=== PATIENT | female | born 1945 | race Caucasian/White ===

== ENCOUNTER 2016-06-04 16:11 | Inpatient (IN) ==
[2016-06-04] MEDS ORDERED: LACTATED RINGERS 500 ML IV STA (16:17)
[2016-06-04] MEDS ORDERED: ONDANSETRON 4 MG/2 ML VIAL IV STA (16:20)
[2016-06-04] MEDS ORDERED: METOCLOPRAMIDE 10 MG/2 ML VIAL IV STA (16:20)
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
[2016-06-04] MEDS ORDERED: ONDANSETRON 4 MG/2 ML VIAL ONE (16:46)
[2016-06-04] MEDS ORDERED: METOCLOPRAMIDE 10 MG/2 ML VIAL ONE (16:46)
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
[2016-06-04 16:52] LABS: Basophils # 0.1 10*3/uL (0.0-0.2); Basophils % 0.4 % (0.0-0.8); Eosinophils # 0.3 10*3/uL (0.0-0.87); Hematocrit 45.8 VOL% (35.7-47.0); Hemoglobin 14.6 GM/DL (12.0-16.0); Immature Granulocytes % 0.6 %; Immature Granulocytes Absolute 0.09 #; Lymphocytes # 5.9 10*3/uL (1.4-4.0); Lymphocytes % 38.8 % (21.3-54.2); Mean Corpuscular HGB Conc 31.9 GM/DL (32-36); Mean Corpuscular Hemoglobin 30 PG (27-34); Mean Corpuscular Volume 93.3 FL (87-102); Mean Platelet Volume 10.9 FL (9.6-12.0); Monocytes % 6.6 % (1.7-12.7); Neutrophils # 7.8 10*3/uL (1.4-7.4); Neutrophils % 51.6 % (38.7-73.9); Platelet Count 235 T/CUMM (130-400); Red Blood Count 4.91 MC/CUMM (3.8-5.5); White Blood Count 15.2 T/CUMM (4-12)
[2016-06-04] MEDS ORDERED: ACETAMINOPHEN 325 MG TABLET PO PRN (16:52)
[2016-06-04 16:53] LABS: Apearance,Urine Slightly Hazy (Clear); Bacteria,Urine Occasional /HPF (Few); Bilirubin,Urine Negative (Negative); Blood, Urine Large mg/dL (Negative); Glucose,Urine (UA) Negative (Negative); Ketones,Urine Negative (Negative); Mucus,Urine Occasional /LPF (Occasional); Nitrite,Urine Negative (Negative); Protein,Urine 100 MG/DL; RBC,Urine 33 /HPF (0-4); Squamous Epithelial Cell,Urine Occasional /HPF (0-10); Urine Color Yellow (Yellow); Urine Specific Gravity 1.023 (1.001-1.035); Urine Urobilinogen < 2.0 EU/DL (0.2-1.0); WBC,Urine 12 /HPF (0-6)
[2016-06-04 16:57] LABS: Barbiturates Screen,Urine Negative (Negative); Benzodiazepines Screen,Urine Negative (Negative); Cannabinoid Screen,Urine Negative (Negative); Opiate Screen,Urine Negative (Negative); Phencyclidine Screen,Urine Negative (Negative)
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
[2016-06-04] MEDS ORDERED: HYDROmorphone 2 MG/1 ML VIAL IV STA (17:07)
[2016-06-04] MEDS ORDERED: HYDROmorphone 2 MG/1 ML VIAL ONE (17:10)
--- NOTE | 2016-06-04 17:12 | Event Note ---
We do not have a report back on her CT scan of her abdomen think I can see a liver laceration right lobe. There is indistinct plane between the right lobe of the liver in the right kidney. We will get serial hematocrits for abdominal bleeding.
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
[2016-06-04 17:27] LABS: Troponin I Only < 0.015 NG/ML (0.00-0.045)
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
[2016-06-04 17:39] LABS: Alanine Aminotransferase 64 U/L (13-56); Albumin 3.7 G/DL (3.4-5.0); Alkaline Phosphatase 117 U/L (45-117); Amylase 37 U/L (25-115); Aspartate Amino Transferase 121 U/L (0-37); Blood Urea Nitrogen 14 MG/DL (7-18); Calcium 8.9 MG/DL (8.5-10.1); Glucose 125 MG/DL (74-106); Osmolality,Calculated 289.7 MOS/KG (273-304); Potassium 3.5 MMOL/L (3.5-5.1); Sodium 145 MMOL/L (136-145)
[2016-06-04] MEDS: ONDANSETRON 4 MG/2 ML VIAL IV PRN (18:14)
[2016-06-04] MEDS: DEXTROSE 5% LACTATED RINGERS 1,000 ML IV SCH (20:29)
[2016-06-04 20:55] LABS: PT Patient Result 10.6 SECS; Partial Thromboplastin Time 22.6 SECS (0-40)
[2016-06-05] MEDS: DEXTROSE 5% LACTATED RINGERS 1,000 ML IV SCH ×3 (05:02→22:11)
[2016-06-05] MEDS: ONDANSETRON 4 MG/2 ML VIAL IV PRN (08:35)
[2016-06-05] MEDS: PANTOPRAZOLE 40 MG TABLET PO SCH (08:36)
--- NOTE | 2016-06-05 08:42 | EKG Report ---
Stationary ECG Study 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
[2016-06-05] MEDS ORDERED: ALBUTEROL/IPRATROPIUM 3 ML NEB RESP TX PRN (10:29)
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
[2016-06-05 10:59] LABS: Basophils % 0.2 % (0.0-0.8); Eosinophils % 0.3 % (0.00-10.9); Hematocrit 39.6 VOL% (35.7-47.0); Hemoglobin 12.7 GM/DL (12.0-16.0); Immature Granulocytes % 0.4 %; Immature Granulocytes Absolute 0.04 #; Lymphocytes # 1.9 10*3/uL (1.4-4.0); Lymphocytes % 17.1 % (21.3-54.2); Mean Corpuscular HGB Conc 32.1 GM/DL (32-36); Mean Corpuscular Hemoglobin 29 PG (27-34); Mean Platelet Volume 9.7 FL (9.6-12.0); Monocytes # 0.8 10*3/uL (0.11-0.8); Monocytes % 7.4 % (1.7-12.7); Neutrophils # 8.1 10*3/uL (1.4-7.4); Neutrophils % 74.6 % (38.7-73.9); Platelet Count 224 T/CUMM (130-400); Red Blood Count 4.35 MC/CUMM (3.8-5.5); Red Cell Distribution Width 13.2 % (9.3-17.3); White Blood Count 10.8 T/CUMM (4-12)
[2016-06-05] MEDS ORDERED: AMINOPHYLLINE 250 MG in SODIUM CHLORIDE 0.9% 100 ML IV ONE (11:00)
[2016-06-05] MEDS: methylPREDNISolone SOD SUC 40 MG/1 ML VIAL IV SCH ×2 (11:26→22:19)
[2016-06-05] MEDS: cefTRIAXone 1,000 MG in SODIUM CHLORIDE 0.9% 100 ML IV SCH (11:27)
[2016-06-05 11:28] LABS: Albumin 3.4 G/DL (3.4-5.0); Bilirubin,Total 0.9 MG/DL (0.2-1.0); Calcium 8.9 MG/DL (8.5-10.1); Osmolality,Calculated 285.7 MOS/KG (273-304); Potassium 3.8 MMOL/L (3.5-5.1); Total Protein 6.4 G/DL (6.4-8.3)
[2016-06-05] MEDS: MONTELUKAST 10 MG TABLET PO SCH ×2 (11:28→11:36)
[2016-06-05] MEDS: NICOTINE 14 MG/24 HR PATCH TRANSDERM SCH (11:36)
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
[2016-06-05] MEDS ORDERED: MORPHINE 2 MG/1 ML SYRINGE IV PRN (12:07)
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
[2016-06-05] MEDS ORDERED: ALBUTEROL/IPRATROPIUM 3 ML NEB RESP TX ONE (12:57)
[2016-06-05] MEDS: ALBUTEROL/IPRATROPIUM 3 ML NEB RESP TX SCH ×2 (13:24→20:10)
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
--- NOTE | 2016-06-05 17:14 | Anesthesia ---
Anesthesia Post OP - Post Ansesthetic Evaluation Patient seen in post op: Yes Resp: within normal limits CV: within normal limits Mental: within normal limits Temp: within normal limits Liyx-Mt-Jujqqbtog: within normal limits Nausea and Vomiting: within normal limits Pain: within normal limits
[2016-06-05] MEDS ORDERED: PROPOFOL 200 MG/20 ML VIAL IV ONE (17:18)
[2016-06-05] MEDS ORDERED: fentaNYL 100 MCG/2 ML VIAL ONE (17:18)
[2016-06-05] MEDS ORDERED: MIDAZOLAM 2 MG/2 ML VIAL ONE (17:18)
[2016-06-05] MEDS ORDERED: ROCURONIUM 100 MG/10 ML VIAL IV ONE (17:19)
[2016-06-05] MEDS ORDERED: SEVOFLURANE 1 UNIT/15 MINUTE INH ONE (17:19)
[2016-06-05] MEDS ORDERED: SUCCINYLCHOLINE 200 MG/10 ML VIAL ONE (17:19)
[2016-06-05] MEDS ORDERED: ONDANSETRON 4 MG/2 ML VIAL ONE (17:19)
[2016-06-05] MEDS ORDERED: METOPROLOL TARTRATE 5 MG/5 ML VIAL IV ONE (17:19)
[2016-06-05] MEDS: AMINOPHYLLINE 500 MG in SODIUM CHLORIDE 0.9% 480 ML IV SCH (18:18)
[2016-06-06] MEDS: ALBUTEROL/IPRATROPIUM 3 ML NEB RESP TX SCH ×4 (01:01→20:26)
[2016-06-06] MEDS: DEXTROSE 5% LACTATED RINGERS 1,000 ML IV SCH ×2 (05:42→15:53)
[2016-06-06 05:55] LABS: Hematocrit 34.9 VOL% (35.7-47.0); Hemoglobin 11.2 GM/DL (12.0-16.0); Immature Granulocytes % 0.4 %; Immature Granulocytes Absolute 0.04 #; Lymphocytes # 1.1 10*3/uL (1.4-4.0); Lymphocytes % 11.9 % (21.3-54.2); Mean Corpuscular HGB Conc 32.1 GM/DL (32-36); Mean Corpuscular Hemoglobin 30 PG (27-34); Mean Corpuscular Volume 92.3 FL (87-102); Mean Platelet Volume 9.9 FL (9.6-12.0); Monocytes # 0.5 10*3/uL (0.11-0.8); Monocytes % 5.1 % (1.7-12.7); Neutrophils # 7.6 10*3/uL (1.4-7.4); Neutrophils % 82.6 % (38.7-73.9); Platelet Count 191 T/CUMM (130-400); Red Blood Count 3.78 MC/CUMM (3.8-5.5); Red Cell Distribution Width 13.2 % (9.3-17.3); White Blood Count 9.2 T/CUMM (4-12)
[2016-06-06 06:33] LABS: Albumin 2.9 G/DL (3.4-5.0); Bilirubin,Total 0.5 MG/DL (0.2-1.0); Calcium 8.5 MG/DL (8.5-10.1); Osmolality,Calculated 291.6 MOS/KG (273-304); Potassium 3.6 MMOL/L (3.5-5.1); Total Protein 5.8 G/DL (6.4-8.3)
--- NOTE | 2016-06-06 07:31 | Orthopedic Progress Note ---
Assessment and Plan (1) Colles' fracture of left radius Status: Acute Assessment and plan: Discussed fracture in detail with the patient and her family. Due to the significant displacement I recommended closed reduction percutaneous pinning. Perioperative and Postoperative care including 6 weeks of postoperative immobilization was discussed. They voiced understanding and desired to proceed. Risks, alternatives, and benefits to undergoing this procedure were discussed in great detail, the patient voiced understanding desire proceed. Risks discussed included, but were not limited to, bleeding, infection, damage to arteries and nerves, nonunion, malunion, need for revision surgery, as well as medical complications. We'll plan to perform procedure later this afternoon Current Visit: Yes Qualifiers: Encounter type: initial encounter Fracture type: closed Qualified Code(s) : S52.532A - Colles' fracture of left radius, initial encounter for closed fracture Exam - Constitutional Vitals: Period Temp Pulse Resp BP Sys/Vaughn Pulse Ox Last 24 Hr 96.9 F-98.3 F 75-100 16-91 119-175/51-97 20-100 Results - Labs CBC & BMP: 06/06/16 05:41 06/06/16 05:41 Quality Measures - VTE Contraindication to Pharmacological VTE Prophylaxis: High Risk of Bleeding Specialty Discharge - Follow Up or Referrals Follow up with: Frandy Taveras MD [Physician] - 2 Weeks - Speciality Discharge Instructions Orthopedic Instructions: keep splint clean and dry. elevate L hand/wrist
[2016-06-06] MEDS: MONTELUKAST 10 MG TABLET PO SCH (08:01)
[2016-06-06] MEDS: PANTOPRAZOLE 40 MG TABLET PO SCH (08:02)
[2016-06-06] MEDS: NICOTINE 14 MG/24 HR PATCH TRANSDERM SCH ×2 (08:05→15:51)
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
[2016-06-06] MEDS: methylPREDNISolone SOD SUC 40 MG/1 ML VIAL IV SCH ×2 (10:51→22:18)
[2016-06-06] MEDS: cefTRIAXone 1,000 MG in SODIUM CHLORIDE 0.9% 100 ML IV SCH (10:51)
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
[2016-06-06] MEDS: AMINOPHYLLINE 500 MG in SODIUM CHLORIDE 0.9% 480 ML IV SCH (15:50)
[2016-06-06] MEDS: ALUMINUM/MAGNES/SIMETH MAX STR 30 ML UDCUP PO PRN ×2 (15:51→21:31)
[2016-06-06] MEDS ORDERED: PROPOFOL 200 MG/20 ML VIAL IV ONE (16:16)
[2016-06-06] MEDS ORDERED: ONDANSETRON 4 MG/2 ML VIAL ONE (16:16)
[2016-06-06] MEDS ORDERED: SUCCINYLCHOLINE 200 MG/10 ML VIAL ONE (16:16)
[2016-06-06] MEDS ORDERED: ROCURONIUM 100 MG/10 ML VIAL IV ONE (16:16)
[2016-06-06] MEDS ORDERED: METOPROLOL TARTRATE 5 MG/5 ML VIAL IV ONE (16:16)
[2016-06-06] MEDS ORDERED: LIDOCAINE 2% 5 ML VIAL ONE (16:16)
[2016-06-06] MEDS: ONDANSETRON 4 MG/2 ML VIAL IV PRN (23:06)
[2016-06-07] MEDS: ALBUTEROL/IPRATROPIUM 3 ML NEB RESP TX SCH ×3 (01:16→13:31)
[2016-06-07] MEDS: DEXTROSE 5% LACTATED RINGERS 1,000 ML IV SCH ×4 (01:17→13:52)
[2016-06-07 06:26] LABS: Basophils % 0.1 % (0.0-0.8); Hematocrit 37.9 VOL% (35.7-47.0); Hemoglobin 12.1 GM/DL (12.0-16.0); Immature Granulocytes % 0.9 %; Immature Granulocytes Absolute 0.11 #; Lymphocytes # 0.8 10*3/uL (1.4-4.0); Lymphocytes % 6.6 % (21.3-54.2); Mean Corpuscular HGB Conc 31.9 GM/DL (32-36); Mean Corpuscular Hemoglobin 30 PG (27-34); Mean Corpuscular Volume 92.9 FL (87-102); Mean Platelet Volume 9.6 FL (9.6-12.0); Monocytes # 0.4 10*3/uL (0.11-0.8); Monocytes % 3.4 % (1.7-12.7); Neutrophils # 10.6 10*3/uL (1.4-7.4); Platelet Count 214 T/CUMM (130-400); Red Blood Count 4.08 MC/CUMM (3.8-5.5); Red Cell Distribution Width 13.2 % (9.3-17.3); White Blood Count 11.9 T/CUMM (4-12)
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
[2016-06-07] MEDS ORDERED: THEOPHYLLINE ER (24 HR) 200 MG CAPSULE PO SCH (08:00)
[2016-06-07] MEDS: NICOTINE 14 MG/24 HR PATCH TRANSDERM SCH (08:54)
[2016-06-07] MEDS: MONTELUKAST 10 MG TABLET PO SCH (08:55)
[2016-06-07] MEDS: PANTOPRAZOLE 40 MG TABLET PO SCH (08:55)
[2016-06-07] MEDS: methylPREDNISolone SOD SUC 40 MG/1 ML VIAL IV SCH (10:04)
[2016-06-07] MEDS: cefTRIAXone 1,000 MG in SODIUM CHLORIDE 0.9% 100 ML IV SCH (10:06)
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
[2016-06-07] MEDS: AMINOPHYLLINE 500 MG in SODIUM CHLORIDE 0.9% 480 ML IV SCH (13:44)
[2016-06-07 17:59] VITALS: BP 147/70
== END 2016-06-07 16:00 | disposition home or self-care (01) | DRG 958 ==
LOC: EDUNIT# → EDBD → N.ED 16:11 → N.EDINP 16:11 → N.5E 19:24
PROVIDERS: ADMIT Surgery; ATTEND Surgery

== ENCOUNTER 2016-07-15 17:36 | Observation (INO) ==
--- NOTE | 2016-07-15 18:12 | Emergency Department Note ---
Arrival - Arrival Chief Complaint: Chest Pain Stated Complaint: chest pain, blood clot in stomach ED Nursing Triage Note: c/o having chest pain since last evening around noon, states the pain has not gone away, states the pain is a dull pain but if takes in a deep breath it makes worse, denies having diaphresis, + chills, +nausea , pain radiates in between shoulder blades, ekg obtained at time of triage Mode of Arrival: Wheelchair Time Seen by Provider: 07/15/16 18:10 - History of Present Illness HPI Narrative: Patient complains of left sided, dull, constant chest pain since yesterday. The pain is worse with movement, cough or deep inspiration. She has had some nausea but no vomiting, shortness of breath or diaphoresis. She has not had similar problems in the past. She does have a questionable history of PR 2 years ago but no cath or stent was ever done. She denies fever or chills. She does have a history of high blood pressure and high cholesterol. She is still a smoker. There is a family history of CAD after age 60. Allergies/Adverse Reactions: Allergies Allergy/AdvReac Type Severity Reaction Status Date / Time No Known Allergies Allergy Verified 07/15/16 17:49 Home Medications: Home Medications Medication Instructions Recorded Confirmed Type Albuterol Sulfate [Proair HFA] 2 puff INH Q4H PRN 06/04/16 07/15/16 History Aspirin EC Tab 81 mg PO DAILY 06/04/16 07/15/16 History Metoprolol Tartrate 50 mg PO DAILY 06/04/16 07/15/16 History Sertraline [Zoloft] 50 mg PO DAILY 06/04/16 07/15/16 History HYDROcodone/ACETAMIN 7.5-325 1 tablet PO Q4H PRN #30 tablet 06/07/16 07/15/16 Rx [Blanco 7.5-325] Review of System - Review of System 12 point system: reviewed and no additional remarkable complaints except as stated - Review of System Constitutional: Absent: chills, diaphoresis, fever Respiratory: Present: cough, wheezing. Absent: respiratory distress Cardiovascular: Present: chest pain. Absent: palpitations, dyspnea on exertion Gastrointestinal: Present: nausea. Absent: abdominal pain, vomiting Medical,Surgical,& Family Hx - Medical History Cardio: History of: Hypertension, PR, PVD (distal aortic occlusion) Endocrine: History of: Dyslipidemia Respiratory: History of: COPD Hematology: History of: Clotting Problems - Surgical History Orthopedic Surgeries: Surgical HX of;: Orthopedic Surgery (left arm) - Family History Family History: Reports;: Family Heart Disease, Family Hypertension Denies;: Family Anesthesia Reaction, Family Diabetes, Family Psychiatric Problems, Family Stroke - Social History Smoking Status: Smoker, status unknown Frequency of Alcohol Use: None Type of Drug Use: None Exam Physical Examination: GENERAL: Alert. No acute distress. HEENT: Normocephalic and atraumatic. There is no nasal drainage. No pharyngeal erythema or exudate. NECK: Normal inspection. Supple. No lymphadenopathy or meningismus. LUNGS: No respiratory distress. Good air movement. Sparse wheezes throughout. HEART: Regular rate and rhythm. Chest: Positive tenderness to palpation over the left chest, primarily left parasternal. Reproduces pain. ABDOMEN: Soft, nontender and nondistended with normoactive bowel sounds. BACK: Normal inspection. SKIN: Color normal. Warm and dry. EXTREMITIES: Nontender. Normal range of motion. No pedal edema. NEUROLOGICAL/PSYCHIATRIC: Alert and oriented 3 with normal mood and affect. Cranial nerves normal. No motor or sensory deficit. Vital Signs: Vital Signs Temperature 98.0 F 07/15/16 18:33 Pulse Rate 80 07/15/16 18:33 Respiratory Rate 18 07/15/16 18:33 Blood Pressure 173/84 07/15/16 18:33 O2 Sat by Pulse Oximetry 100 07/15/16 18:30 Course - Reevaluation(s) Reevaluation #1: The patient has remained stable in the ER. She continues to have some mild chest pain. I suspect that her chest pain is chest wall in origin, however, she has several risk factors including hypertension, hypercholesterolemia, peripheral vascular disease, heavy smoking, and possible prior PR. So I think she needs observation, serial enzymes and possible cardiology consultation. I discussed patient with Dr. Crockett who will see her and admit. Time: 19:55 Results - Labs CBC & BMP: 07/15/16 18:35 07/15/16 18:35 Lab Results: I have reviewed the patients labs Labs: Laboratory Tests 07/15/16 07/15/16 18:35 18:35 INR 1.0 Total Bilirubin < 0.39 AST 8 ALT 17 CK-MB (CK-2) 1.4 Troponin I 0.021 Laboratory Tests 07/15/16 18:35 D-Dimer, Quantitative 0.6 - Impressions EKG shows a normal sinus rhythm at 75 with borderline left atrial enlargement. Chest x-ray shows COPD changes. No acute abnormality. Disposition Clinical Impression: Chest pain Case discussed with: patient, patient's family Disposition: Still a Patient Condition: Stable Time of Disposition: 19:49
[2016-07-15 18:44] LABS: Basophils # 0.1 10*3/uL (0.0-0.2); Basophils % 0.4 % (0.0-0.8); Eosinophils # 0.2 10*3/uL (0.0-0.87); Eosinophils % 1.3 % (0.00-10.9); Hematocrit 44.9 VOL% (35.7-47.0); Hemoglobin 14.3 GM/DL (12.0-16.0); Immature Granulocytes % 0.5 %; Immature Granulocytes Absolute 0.06 #; Lymphocytes # 5.1 10*3/uL (1.4-4.0); Lymphocytes % 38.9 % (21.3-54.2); Mean Corpuscular HGB Conc 31.8 GM/DL (32-36); Mean Corpuscular Hemoglobin 30 PG (27-34); Mean Corpuscular Volume 93.2 FL (87-102); Mean Platelet Volume 9.5 FL (9.6-12.0); Monocytes # 0.9 10*3/uL (0.11-0.8); Monocytes % 6.5 % (1.7-12.7); Neutrophils # 6.9 10*3/uL (1.4-7.4); Neutrophils % 52.4 % (38.7-73.9); Platelet Count 227 T/CUMM (130-400); Red Blood Count 4.82 MC/CUMM (3.8-5.5); Red Cell Distribution Width 13.2 % (9.3-17.3); White Blood Count 13.1 T/CUMM (4-12)
[2016-07-15 19:07] LABS: PT Patient Result 10.1 SECS; Partial Thromboplastin Time 25.7 SECS (0-40)
[2016-07-15 19:13] LABS: Alanine Aminotransferase 17 U/L (13-56); Albumin 3.6 G/DL (3.4-5.0); Alkaline Phosphatase 103 U/L (45-117); Aspartate Amino Transferase 8 U/L (0-37); Bilirubin,Total < 0.39 MG/DL (0.2-1.0); Blood Urea Nitrogen 14 MG/DL (7-18); Calcium 10.1 MG/DL (8.5-10.1); Glucose 97 MG/DL (74-106); Magnesium 2.4 MG/DL (1.8-2.4); Osmolality,Calculated 288.7 MOS/KG (273-304); Potassium 3.8 MMOL/L (3.5-5.1); Sodium 145 MMOL/L (136-145); Total Protein 6.4 G/DL (6.4-8.3); Troponin I Only 0.021 NG/ML (0.00-0.045)
--- NOTE | 2016-07-15 19:27 | XRay Report ---
History: Chest pain and cough Date: 07/15/2016 Study: Chest x-ray AP portable Comparison exam: Chest x-ray June 05, 2016 The cardiac silhouette is not enlarged. There is no mediastinal mass. The pulmonary vasculature is not engorged. Lungs are well-expanded to slightly hyperexpanded. There are some scattered emphysematous changes. There is no acute infiltrate. There is parenchymal pleural scarring in either lung apex. Osseous structures are similar. Impression: Lungs are slightly hyperexpanded as can be seen with COPD. No definite acute process compared to the previous study PROCEDURE INTERPRETED AT [facility] DEPARTMENT OF RADIOLOGY Final Report Signed by: Dr. Addie Greco
[2016-07-15] MEDS ORDERED: ASPIRIN CHEW 81 MG TABLET PO STA (19:57)
[2016-07-15] MEDS ORDERED: ASPIRIN CHEW 81 MG TABLET PO ONE (20:01)
[2016-07-15] MEDS ORDERED: ONDANSETRON 4 MG/2 ML VIAL ONE (20:01)
[2016-07-15] MEDS ORDERED: MORPHINE 2 MG/1 ML SYRINGE ONE (20:01)
[2016-07-15] MEDS: ONDANSETRON 4 MG/2 ML VIAL IV STA ×2 (20:04→20:43)
[2016-07-15] MEDS: MORPHINE 2 MG/1 ML SYRINGE IV STA ×2 (20:04→20:43)
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
[2016-07-15] MEDS ORDERED: ACETAMINOPHEN 325 MG TABLET PO PRN (22:05)
[2016-07-15] MEDS ORDERED: ROSUVASTATIN 20 MG TABLET PO SCH (22:05)
[2016-07-15] MEDS ORDERED: NITROGLYCERIN SL 0.4 MG TABLET SL PRN (22:05)
[2016-07-15] MEDS ORDERED: BISACODYL 5 MG TABLET PO PRN (22:05)
[2016-07-15] MEDS ORDERED: ONDANSETRON 4 MG/2 ML VIAL IV PRN (22:05)
[2016-07-15] MEDS: METOPROLOL TARTRATE 50 MG TABLET PO SCH (22:55)
[2016-07-15] MEDS: methylPREDNISolone SOD SUC 125 MG/2 ML VIAL IV SCH (22:55)
[2016-07-15] MEDS: AZITHROMYCIN 250 MG TABLET PO SCH (22:55)
[2016-07-15] MEDS: FLUTICASONE/SALMETEROL 100-50 DISKUS 14 DOSE INH SCH (22:55)
[2016-07-15] MEDS ORDERED: ENOXAPARIN 40 MG/0.4 ML SYRINGE SUBCUT SCH (23:00)
[2016-07-16] MEDS: ALBUTEROL/IPRATROPIUM 3 ML NEB RESP TX SCH ×3 (00:07→13:36)
[2016-07-16] MEDS: methylPREDNISolone SOD SUC 125 MG/2 ML VIAL IV SCH (06:02)
--- NOTE | 2016-07-16 07:28 | EKG Report ---
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
--- NOTE | 2016-07-16 07:29 | EKG Report ---
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
--- NOTE | 2016-07-16 08:01 | EKG Report ---
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
[2016-07-16] MEDS ORDERED: SERTRALINE 50 MG TABLET PO SCH (09:00)
[2016-07-16] MEDS ORDERED: ASPIRIN EC 81 MG TABLET PO SCH (09:00)
[2016-07-16] MEDS: METOPROLOL TARTRATE 50 MG TABLET PO SCH (09:21)
[2016-07-16] MEDS: FLUTICASONE/SALMETEROL 100-50 DISKUS 14 DOSE INH SCH (09:21)
[2016-07-16] MEDS: AZITHROMYCIN 250 MG TABLET PO SCH (09:21)
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
[2016-07-16 12:36] VITALS: BP 111/67
--- NOTE | 2016-07-16 14:08 | CT Report ---
History: Chest pain radiating to back Date: 07/16/2016 Study: CT chest with IV contrast Comparison exam: CT chest June 04, [address] sections were obtained through the lungs following the IV administration of 80 mL of Omnipaque 350 without immediate complication. Total DLP measures 134.4 mGy*cm. The CT exam was performed using one or more of the following dose reduction techniques: Automated exposure control and adjustment of the mA and/or kV according to patient size. There is no discrete filling defect within the pulmonary arterial tree to suggest acute pulmonary embolic disease. There is no thoracic aortic aneurysm or dissection. There is chronic occlusion of the infrarenal abdominal aorta as noted on the comparison study. There is no lymphadenopathy by short axis diameter criteria. There is no mediastinal mass. There is no pleural or pericardial effusion. There is some segmental opacification of a right lower lobe bronchus posteriorly and medially which was not present on the previous exam. This segmental occlusion measures approximately 19 mm. This may represent some mucus plugging. There is some mild dependent atelectasis in the lower lobes. There is some pleural-based scarring in either lung apex. Spondylotic changes of the thoracic spine are present. Numerous older healing fractures of the right seventh, eighth, and ninth ribs are noted. Impression: Short segmental occlusion of a right lower lobe bronchus which could be related to mucous plugging. 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 Addie Greco
--- NOTE | 2016-07-16 14:55 | Discharge Summary ---
Hospital Course - Hospital Course Hospital Course: Patient was admitted overnight for chest pain which was fairly atypical lasting several hours. Her cardiac enzymes stayed essentially negative. Cardiology saw the patient and felt she can be discharged home with follow-up stress testing on an outpatient basis. Since her pain had been lasting for several hours and was radiating to the back and she had some history of issues with abdominal aorta we proceeded with a CT chest which essentially is unchanged from previously. She has a chronic lower abdominal area of occlusion as well as some bronchial plugging. She wants to go home as a sister has leukemia and has managed to chemotherapy meds. Discussed with nursing staff were scheduling outpatient stress testing. Patient is being discharged home with follow-up on an outpatient basis with cardiology. 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 Smoking cessation counseling was done again lasting greater than 10 minutes. - Time spent with patient Time with patient DS: Greater than 30 minutes Diagnosis - Discharge Diagnosis (1) Chronic distal aortic occlusion Status: Acute (2) Chest pain Status: Acute (3) COPD exacerbation Status: Acute (4) Hypertension Status: Acute (5) Depression Status: Acute Discharge Plan - Discharge Data Condition at Discharge: Stable Contact your physician if you experience:: Shortness of breath - Discharge Medications New Aspirin EC Tab 81 mg PO DAILY #30 tablet Continue Metoprolol Tartrate 50 mg PO DAILY Fluticasone/Vilanterol [Breo Ellipta 100-25 Mcg INH] 1 puff INH DAILY predniSONE TAB [PredniSONE] 10 mg PO DAILY Sertraline [Zoloft] 50 mg PO DAILY Fluticasone/Salmeterol 100-50 [Advair 100-50] 1 puff INH BID #1 actuation Discontinued Aspirin EC Tab 81 mg PO DAILY - Follow Up or Referral Follow Up: Frandy Fuller MD [Physician] - 2 Weeks - Forms/Instructions Exam - Constitutional Vitals: Period Temp Pulse Resp BP Sys/Vaughn Pulse Ox Last 24 Hr 96.8 F-98.6 F 53-75 16-20 111-145/51-74 94-100 Discharge Results Labs on day of discharge: Labs from last 24 hours 07/16/16 07/15/16 05:17 23:36 Troponin I < 0.015 0.017 DS: Provider Date of admission: 07/15/16 20:36 Primary care physician: . No PCP Attending physician on admission: Jesus Soto MD Consults: 07/15/16 22:27 Consult to Pharmacy [CONS] Routine Reason for Pharmacy Consult: Adjust Meds Renal Funct 07/16/16 09:40 Consult to Physician [CONS] Routine Comment: Consulting Provider: When should Consulting Provider be notified: In am Consult to Specialist Group: Cardiology When should Consulting Provider be notified: Now Consult Notification Comment: cp ? hx of some heart dx Discharging clinician: Jesus Soto MD
[2016-07-17] MEDS ORDERED: predniSONE 20 MG TABLET PO SCH (09:00)
== END 2016-07-16 15:47 | disposition home or self-care (01) ==
LOC: N.EDINP 17:36 → N.ED 17:36 → N.TELEN 21:40
PROVIDERS: ADMIT Internal Medicine; ATTEND Internal Medicine

== ENCOUNTER 2021-12-20 12:16 | Observation (INO) ==
[2021-12-20] MEDS ORDERED: ASPIRIN 325 MG TABLET PO STA ×2 (12:29→12:46)
[2021-12-20] MEDS ORDERED: ONDANSETRON 4 MG/2 ML VIAL IV STA (12:46)
[2021-12-20] MEDS ORDERED: MORPHINE 10 MG/1 ML VIAL IV STA (12:46)
[2021-12-20 12:56] LABS: Basophils % 0.5 % (0.0-0.8); Eosinophils # 0.2 10*3/uL (0.0-0.87); Eosinophils % 2.9 % (0.00-10.9); Hematocrit 41.9 VOL% (35.7-47.0); Hemoglobin 13.4 GM/DL (12.0-16.0); Immature Granulocytes % 0.4 %; Immature Granulocytes Absolute 0.03 #; Lymphocytes # 2.3 10*3/uL (1.4-4.0); Lymphocytes % 29.5 % (21.3-54.2); Mean Corpuscular Volume 92.5 FL (87-102); Mean Platelet Volume 9.3 FL (9.6-12.0); Monocytes # 0.6 10*3/uL (0.11-0.8); Monocytes % 8.2 % (1.7-12.7); Neutrophils % 58.5 % (38.7-73.9); Platelet Count 227 T/CUMM (130-400); Red Blood Count 4.53 MC/CUMM (3.8-5.5); Red Cell Distribution Width 13.1 % (9.3-17.3); White Blood Count 7.8 T/CUMM (4-12)
[2021-12-20] MEDS ORDERED: MORPHINE 2 MG/1 ML SYRINGE ONE (13:11)
[2021-12-20 13:15] LABS: Alanine Aminotransferase 12 U/L (13-56); Albumin 3.6 G/DL (3.4-5.0); Alkaline Phosphatase 81 U/L (45-117); Aspartate Amino Transferase 9 U/L (0-37); Bilirubin,Total < 0.39 MG/DL (0.20-1.00); Blood Urea Nitrogen 19 MG/DL (7-18); Calcium 9.5 MG/DL (8.5-10.1); Carbon Dioxide 30 MMOL/L (21-32); Chloride 105 MMOL/L (98-107); Glucose 96 MG/DL (74-106); Osmolality,Calculated 278.5 MOS/KG (273-304); Potassium 4.4 MMOL/L (3.5-5.1); Sodium 139 MMOL/L (136-145); Total Protein 6.4 G/DL (6.4-8.2)
[2021-12-20] MEDS ORDERED: MORPHINE 2 MG/1 ML SYRINGE IV STA (14:25)
[2021-12-20] MEDS ORDERED: GLUCAGON 1 MG VIAL IM PRN (15:34)
[2021-12-20] MEDS ORDERED: ONDANSETRON 4 MG/2 ML VIAL IV PRN (15:34)
[2021-12-20] MEDS ORDERED: hydrALAZINE 20 MG/1 ML VIAL IV PRN (15:39)
[2021-12-20] MEDS ORDERED: DEXTROSE 10% 250 ML BAG IV PRN (15:44)
[2021-12-20] MEDS ORDERED: ALBUTEROL/IPRATROPIUM 3 ML NEB RESP TX PRN (15:53)
[2021-12-20] MEDS: NICOTINE 14 MG/24 HR PATCH TRANSDERM SCH (18:16)
[2021-12-20] MEDS: methylPREDNISolone SOD SUC 40 MG/1 ML VIAL IV SCH (18:17)
[2021-12-20] MEDS: ENOXAPARIN 30 MG/0.3 ML SYRINGE SUBCUT SCH (18:17)
[2021-12-20] MEDS: MORPHINE 2 MG/1 ML SYRINGE IV PRN (19:50)
[2021-12-20] MEDS: ACETAMINOPHEN 325 MG TABLET PO PRN (20:42)
[2021-12-20] MEDS: SIMVASTATIN 10 MG TABLET PO SCH (20:43)
[2021-12-20] MEDS: GABAPENTIN 300 MG CAPSULE PO SCH (20:43)
[2021-12-20] MEDS: FLUTICASONE/SALMETEROL 100-50 DISKUS 14 DOSE INH SCH (20:44)
[2021-12-21] MEDS: ZALEPLON 5 MG CAPSULE PO PRN ×2 (01:02→20:18)
[2021-12-21] MEDS: methylPREDNISolone SOD SUC 40 MG/1 ML VIAL IV SCH ×2 (04:19→18:04)
[2021-12-21] MEDS: MORPHINE 2 MG/1 ML SYRINGE IV PRN (04:21)
[2021-12-21 06:33] LABS: Basophils % 0.1 % (0.0-0.8); Hematocrit 43.9 VOL% (35.7-47.0); Immature Granulocytes % 0.4 %; Immature Granulocytes Absolute 0.04 #; Lymphocytes # 0.9 10*3/uL (1.4-4.0); Lymphocytes % 10.6 % (21.3-54.2); Mean Corpuscular HGB Conc 31.9 GM/DL (32-36); Mean Corpuscular Volume 92.8 FL (87-102); Mean Platelet Volume 9.2 FL (9.6-12.0); Monocytes # 0.1 10*3/uL (0.11-0.8); Monocytes % 1.6 % (1.7-12.7); Neutrophils % 87.3 % (38.7-73.9); Platelet Count 212 T/CUMM (130-400); Red Blood Count 4.73 MC/CUMM (3.8-5.5); Red Cell Distribution Width 12.9 % (9.3-17.3); White Blood Count 8.9 T/CUMM (4-12)
[2021-12-21 07:08] LABS: Calcium 9.2 MG/DL (8.5-10.1); Osmolality,Calculated 280.7 MOS/KG (273-304); Potassium 5.1 MMOL/L (3.5-5.1); Risk Ratio 5.02; Thyroid Stimulating Hormone 2.33 uIU/ml (0.358-3.74); VLDL Cholesterol 20.2 MG/DL
[2021-12-21] MEDS: NICOTINE 14 MG/24 HR PATCH TRANSDERM SCH (09:30)
[2021-12-21] MEDS: GABAPENTIN 300 MG CAPSULE PO SCH ×2 (09:30→20:18)
[2021-12-21] MEDS: ASPIRIN EC 81 MG TABLET PO SCH (09:30)
[2021-12-21] MEDS: lisinopriL 10 MG TABLET PO SCH (09:31)
[2021-12-21] MEDS: PANTOPRAZOLE 40 MG TABLET PO SCH (09:31)
[2021-12-21] MEDS: FLUTICASONE/SALMETEROL 100-50 DISKUS 14 DOSE INH SCH ×2 (09:31→20:19)
[2021-12-21] MEDS: ACETAMINOPHEN 325 MG TABLET PO PRN (15:45)
[2021-12-21] MEDS: ENOXAPARIN 30 MG/0.3 ML SYRINGE SUBCUT SCH (18:04)
[2021-12-21] MEDS: SIMVASTATIN 10 MG TABLET PO SCH (20:19)
[2021-12-22] MEDS: methylPREDNISolone SOD SUC 40 MG/1 ML VIAL IV SCH (04:42)
[2021-12-22] MEDS ORDERED: PROMETHAZINE 25 MG/1 ML VIAL IM ONE (07:00)
[2021-12-22] MEDS ORDERED: MEPERIDINE 50 MG/1 ML VIAL IM ONE (07:00)
[2021-12-22] MEDS ORDERED: LIDOCAINE 1% 20 ML VIAL MISC INJ ONE (07:30)
[2021-12-22] MEDS ORDERED: LIDOCAINE 2% 20 ML VIAL RESP TX ONE (07:30)
[2021-12-22] MEDS ORDERED: LIDOCAINE 2% VISCOUS 100 ML BOTTLE SWISH/SPIT ONE (07:30)
[2021-12-22] MEDS ORDERED: MIDAZOLAM 2 MG/2 ML VIAL IV ONE (07:30)
[2021-12-22 09:06] LABS: Calcium 9.2 MG/DL (8.5-10.1); Osmolality,Calculated 286.4 MOS/KG (273-304); Potassium 4.8 MMOL/L (3.5-5.1)
[2021-12-22] MEDS: PANTOPRAZOLE 40 MG TABLET PO SCH (10:08)
[2021-12-22] MEDS: GABAPENTIN 300 MG CAPSULE PO SCH (10:08)
[2021-12-22] MEDS: lisinopriL 10 MG TABLET PO SCH (10:08)
[2021-12-22] MEDS: ASPIRIN EC 81 MG TABLET PO SCH (10:09)
[2021-12-22] MEDS: FLUTICASONE/SALMETEROL 100-50 DISKUS 14 DOSE INH SCH (10:10)
[2021-12-22] MEDS: NICOTINE 14 MG/24 HR PATCH TRANSDERM SCH (10:13)
[2021-12-22 12:59] VITALS: BP 134/73
== END 2021-12-22 12:55 | disposition home or self-care (01) ==
LOC: N.EDINP 12:16 → N.ED 12:16 → N.TELES 16:25 → SUATTDRO 12-21 11:49
PROVIDERS: ADMIT Internal Medicine; ATTEND Hospitalist

== ENCOUNTER 2022-05-28 13:39 | Inpatient (IN) ==
[2022-05-28] MEDS ORDERED: ALBUTEROL/IPRATROPIUM 3 ML NEB RESP TX STA (14:08)
[2022-05-28] MEDS ORDERED: methylPREDNISolone SOD SUC 125 MG/2 ML VIAL IV STA (14:08)
[2022-05-28] MEDS ORDERED: SODIUM CHLORIDE 0.9% 1,000 ML IV STA (14:08)
[2022-05-28] MEDS ORDERED: ALBUTEROL 2.5 MG/3 ML NEB RESP TX STA (14:08)
[2022-05-28] MEDS ORDERED: ONDANSETRON 4 MG/2 ML VIAL IV ONE (14:08)
[2022-05-28 14:28] LABS: Basophils % 0.3 % (0.0-0.8); Eosinophils # 0.1 10*3/uL (0.0-0.87); Eosinophils % 1.4 % (0.00-10.9); Hematocrit 39.8 VOL% (35.7-47.0); Hemoglobin 12.3 GM/DL (12.0-16.0); Immature Granulocytes % 0.4 %; Immature Granulocytes Absolute 0.03 #; Lymphocytes # 0.9 10*3/uL (1.4-4.0); Mean Corpuscular HGB Conc 30.9 GM/DL (32-36); Mean Corpuscular Volume 92.3 FL (87-102); Mean Platelet Volume 9.1 FL (9.6-12.0); Monocytes # 0.7 10*3/uL (0.11-0.8); Monocytes % 10.5 % (1.7-12.7); Neutrophils % 74.4 % (38.7-73.9); Platelet Count 260 T/CUMM (130-400); Red Blood Count 4.31 MC/CUMM (3.8-5.5); Red Cell Distribution Width 13.6 % (9.3-17.3); White Blood Count 7.1 T/CUMM (4-12)
[2022-05-28 14:36] LABS: Arterial Base Excess iSTAT 0 MMOL/L (-2.5-2.5); Arterial Bicarbonate iSTAT 25.2 MMOL/L (20-26); Arterial O2 Saturation iSTAT 95 % (95-100); Arterial PCO2 iSTAT 40 MM HG (35-48); Arterial PO2 iSTAT 77 MM HG (80-95); Arterial Total CO2 iSTAT 26 MMO/L (23-27); Arterial pH iSTAT 7.403 (7.35-7.45)
[2022-05-28 14:41] LABS: INR 0.9; PT Patient Result 10.2 SECS (10.1-12.1)
[2022-05-28 14:55] LABS: Albumin 3.1 G/DL (3.4-5.0); Bilirubin,Total 0.6 MG/DL (0.20-1.00); Potassium 4.4 MMOL/L (3.5-5.1); Total Protein 6.7 G/DL (6.4-8.2)
[2022-05-28] MEDS ORDERED: cefTRIAXone 1,000 MG in SODIUM CHLORIDE 0.9% 100 ML IV STA (15:01)
[2022-05-28] MEDS ORDERED: AZITHROMYCIN INJ 500 MG in SODIUM CHLORIDE 0.9% 250 ML IV STA (15:01)
[2022-05-28] MEDS ORDERED: DOCUSATE SODIUM 100 MG CAPSULE PO PRN (16:49)
[2022-05-28] MEDS ORDERED: traZODone 50 MG TABLET PO PRN (16:49)
[2022-05-28] MEDS: ALBUTEROL 2.5 MG/3 ML NEB RESP TX SCH (18:50)
[2022-05-28] MEDS: ENOXAPARIN 30 MG/0.3 ML SYRINGE SUBCUT SCH (20:33)
[2022-05-28] MEDS: methylPREDNISolone SOD SUC 40 MG/1 ML VIAL IV SCH (20:34)
[2022-05-28] MEDS: guaiFENesin/DM ER 600-30 MG TABLET PO SCH (20:40)
[2022-05-29] MEDS: ALBUTEROL 2.5 MG/3 ML NEB RESP TX SCH ×4 (00:13→18:44)
[2022-05-29 04:44] LABS: Hemoglobin 10.8 GM/DL (12.0-16.0); Immature Granulocytes % 0.7 %; Immature Granulocytes Absolute 0.03 #; Lymphocytes # 0.3 10*3/uL (1.4-4.0); Lymphocytes % 6.7 % (21.3-54.2); Mean Corpuscular HGB Conc 30.9 GM/DL (32-36); Mean Corpuscular Volume 93.1 FL (87-102); Mean Platelet Volume 9.1 FL (9.6-12.0); Monocytes # 0.1 10*3/uL (0.11-0.8); Neutrophils % 90.6 % (38.7-73.9); Platelet Count 235 T/CUMM (130-400); Red Blood Count 3.76 MC/CUMM (3.8-5.5); Red Cell Distribution Width 13.5 % (9.3-17.3); White Blood Count 4.6 T/CUMM (4-12)
[2022-05-29 05:09] LABS: Calcium 8.7 MG/DL (8.5-10.1); Osmolality,Calculated 279.8 MOS/KG (273-304)
[2022-05-29 05:29] LABS: Lymphocytes 4 % (20-55); Platelet Estimate Adequate; Total Cells Counted 100
[2022-05-29] MEDS ORDERED: AZITHROMYCIN INJ 500 MG in SODIUM CHLORIDE 0.9% 250 ML IV SCH (09:00)
[2022-05-29] MEDS: methylPREDNISolone SOD SUC 40 MG/1 ML VIAL IV SCH ×2 (10:00→22:01)
[2022-05-29] MEDS: guaiFENesin/DM ER 600-30 MG TABLET PO SCH ×2 (10:23→21:59)
[2022-05-29] MEDS: PIPERACILLIN/TAZOBACTAM 3,375 MG in SODIUM CHLORIDE 0.9% 100 ML IV SCH ×2 (10:30→16:47)
[2022-05-29] MEDS ORDERED: cefTRIAXone 1,000 MG in SODIUM CHLORIDE 0.9% 100 ML IV SCH (14:00)
[2022-05-29] MEDS: ENOXAPARIN 30 MG/0.3 ML SYRINGE SUBCUT SCH (21:59)
[2022-05-29] MEDS: lisinopriL 10 MG TABLET PO SCH (22:52)
[2022-05-29] MEDS: GABAPENTIN 300 MG CAPSULE PO SCH (22:52)
[2022-05-30] MEDS: ALBUTEROL 2.5 MG/3 ML NEB RESP TX SCH ×4 (00:16→20:25)
[2022-05-30] MEDS: PIPERACILLIN/TAZOBACTAM 3,375 MG in SODIUM CHLORIDE 0.9% 100 ML IV SCH ×3 (00:20→18:01)
[2022-05-30 04:35] LABS: Basophils % 0.1 % (0.0-0.8); Hematocrit 33.4 VOL% (35.7-47.0); Hemoglobin 10.5 GM/DL (12.0-16.0); Immature Granulocytes % 0.9 %; Immature Granulocytes Absolute 0.12 #; Lymphocytes # 0.4 10*3/uL (1.4-4.0); Lymphocytes % 2.5 % (21.3-54.2); Mean Corpuscular HGB Conc 31.4 GM/DL (32-36); Mean Platelet Volume 9.3 FL (9.6-12.0); Monocytes # 0.5 10*3/uL (0.11-0.8); Monocytes % 3.5 % (1.7-12.7); Platelet Count 285 T/CUMM (130-400); Red Blood Count 3.67 MC/CUMM (3.8-5.5); Red Cell Distribution Width 13.7 % (9.3-17.3); White Blood Count 13.9 T/CUMM (4-12)
[2022-05-30 05:03] LABS: Band Neutrophils 1 % (0-10); Lymphocytes 1 % (20-55); Total Cells Counted 100
[2022-05-30 05:07] LABS: Osmolality,Calculated 282.7 MOS/KG (273-304); Potassium 3.9 MMOL/L (3.5-5.1)
[2022-05-30] MEDS: guaiFENesin/DM ER 600-30 MG TABLET PO SCH ×2 (09:16→21:37)
[2022-05-30] MEDS: GABAPENTIN 300 MG CAPSULE PO SCH ×2 (09:16→21:37)
[2022-05-30] MEDS: methylPREDNISolone SOD SUC 40 MG/1 ML VIAL IV SCH (09:17)
[2022-05-30] MEDS: lisinopriL 10 MG TABLET PO SCH (21:39)
[2022-05-30] MEDS: ENOXAPARIN 30 MG/0.3 ML SYRINGE SUBCUT SCH (21:39)
[2022-05-31] MEDS: ALBUTEROL 2.5 MG/3 ML NEB RESP TX SCH ×3 (00:50→12:06)
[2022-05-31] MEDS: PIPERACILLIN/TAZOBACTAM 3,375 MG in SODIUM CHLORIDE 0.9% 100 ML IV SCH ×2 (01:41→09:30)
[2022-05-31 05:20] LABS: Basophils % 0.1 % (0.0-0.8); Hematocrit 31.4 VOL% (35.7-47.0); Hemoglobin 9.9 GM/DL (12.0-16.0); Immature Granulocytes % 0.8 %; Immature Granulocytes Absolute 0.08 #; Lymphocytes % 10.2 % (21.3-54.2); Mean Corpuscular HGB Conc 31.5 GM/DL (32-36); Mean Corpuscular Volume 91.5 FL (87-102); Mean Platelet Volume 9.2 FL (9.6-12.0); Monocytes # 0.7 10*3/uL (0.11-0.8); Monocytes % 6.4 % (1.7-12.7); Neutrophils % 82.5 % (38.7-73.9); Platelet Count 298 T/CUMM (130-400); Red Blood Count 3.43 MC/CUMM (3.8-5.5); Red Cell Distribution Width 13.9 % (9.3-17.3); White Blood Count 10.2 T/CUMM (4-12)
[2022-05-31 05:48] LABS: Calcium 8.6 MG/DL (8.5-10.1); Potassium 3.4 MMOL/L (3.5-5.1)
[2022-05-31] MEDS: GABAPENTIN 300 MG CAPSULE PO SCH (09:30)
[2022-05-31] MEDS: guaiFENesin/DM ER 600-30 MG TABLET PO SCH (09:30)
[2022-05-31] MEDS: methylPREDNISolone SOD SUC 40 MG/1 ML VIAL IV SCH (09:31)
[2022-05-31 11:41] VITALS: BP 151/64
[2022-05-31] MEDS ORDERED: GLYCOPYRROLATE 0.4 MG/2 ML VIAL ONE (13:30)
[2022-05-31] MEDS ORDERED: NEOSTIGMINE 10 MG/10 ML VIAL ONE (13:30)
== END 2022-05-31 15:14 | disposition home or self-care (01) | DRG 190 ==
LOC: EDUNIT# → EDBD → N.ED 13:39 → SUATTDRO 16:47 → N.EDINP 16:47 → N.TELES 18:02
PROVIDERS: ADMIT Emergency Medicine; ATTEND Internal Medicine Geriatric Medicine